=== PATIENT | male | born 1965 | race Caucasian/White ===

== ENCOUNTER 2016-10-23 17:54 | Emergency (ER) | payer OTHER ==
[~2016-10-23] VITALS: Ht 177.8 cm; Wt 75.0 kg
[2016-10-23 18:17] VITALS: BP 131/82; PULSE 107; RESP 18; O2SAT 97
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
[2016-10-23] MEDS ORDERED: _LORazepam 2 MG Tablet PO SCH (19:35)
[2016-10-23 22:19] VITALS: BP 136/80; PULSE 100; RESP 19; O2SAT 96
== END 2016-10-24 00:17 | disposition home or self-care (01) ==
LOC: SED 17:54
DX: F10.120 Alcohol abuse with intoxication, uncomplicated (principal); R00.0 Tachycardia, unspecified; F17.200 Nicotine dependence, unspecified, uncomplicated